=== PATIENT | male | born 1965 | race Two or more races ===

== ENCOUNTER 2016-12-12 21:05 | Emergency (ER) | payer MEDICARE, MEDICAID ==
[~2016-12-12] VITALS: Ht 180.3 cm; Wt 99.8 kg
[2016-12-12 21:10] VITALS: BP 122/70
[2016-12-12 21:27] LABS: APPEARANCE,URINE CLEAR; KETONES,URINE NEGATIVE (NEGATIVE); LEUKOCYTE ESTERASE ,URINE NEGATIVE (NEGATIVE); NITRITE,URINE NEGATIVE (NEGATIVE); PH,URINE 6 (4.5-8.0); PROTEIN,URINE 2+ (NEGATIVE); UROBILINOGEN,URINE NORMAL MG/DL (0.0-1.0)
[2016-12-12 21:40] LABS: RBC,URINE 0-2 /HPF (0 - 0); SQUAMOUS EPITHELIAL CELL,UR OCCASIONAL /LPF (NONE/OCC); WBC,URINE 0-2 /HPF (0 - 0)
[2016-12-12 21:41] LABS: BACTERIA,URINE OCCASIONAL /HPF
--- NOTE | 2016-12-12 21:48 | Emergency Room Report ---
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 BPH, presenting with one yr of abdominal pain and urinary frequency. Patient states that he has intermittent abdominal pain, points to suprapubic region, states that he has burning on urination, and urinary frequency. Denies hematuria. He should denies any fever chills nausea vomiting diarrhea or constipation. Patient states that he has been able to eat and drink normally. States that he has not seen a urologist. Allergies: Coded Allergies: No Known Allergies (Unverified , 12/12/16) Patient History Past Medical History: HTN, CHF, other - Osteosarcoma s/p chemo Past Surgical History: other Pertinent Family History: none Reviewed Nursing Documentation: PMH: Agreed, PSxH: Agreed Nursing Documentation-PMH Hx Cardiac Problems: Yes - CHF Hx Hypertension: Yes Hx Cancer: Yes - Sarcoma, Prostate surgery in 2010 Physical Exam Vital Signs Date Time Temp Pulse Resp B/P (MAP) Pulse Ox O2 Delivery O2 Flow Rate FiO2 12/12/16 20:57 97.5 75 18 122/70 98 Medical Decision Making Diagnostic Impression: Primary Impression: Urinary frequency Additional Impression: Chronic abdominal pain ER Course 51 yo M with chronic suprapubic pain / urinary frequency x 1 year DDX: Chronic cystitis/UTI, BPH, at this time patient has no tenderness on exam and given chronic symptoms I am not concerned with acute intra-abdominal surgical pathology such as appendicitis diverticulitis Plan: ucx, ucg ER course: Patient has remained stable during ED stay. uA negative Disposition: Patient is to be discharged to home. Patient is instructed to follow up with their primary care doctor within 5 days. Patient is instructed to follow up with urologist within 3 days. Strict return precautions discussed with patient such as fever, chills, worsening/severe pain, nausea, vomiting, which may indicate severe illness. Patient verbalizes understanding and agrees with plan. Please note that this Emergency Department Report was dictated using [employer] machine operator helper gas technology software, occasionally this can lead to erroneous entry secondary to interpretation by the dictation equipment Laboratory Tests Test 12/12/16 21:00 Urine Color Pale yellow Urine Appearance Clear Urine pH 6 (4.5-8.0) Urine Specific [place] 1.005 (1.005-1.035) Urine Protein 2+ (NEGATIVE) H Urine Glucose (UA) Negative (NEGATIVE) Urine Ketones Negative (NEGATIVE) Urine Occult Blood 2+ (NEGATIVE) H Urine Nitrite Negative (NEGATIVE) Urine Bilirubin Negative (NEGATIVE) Urine Urobilinogen Normal MG/DL (0.0-1.0) Urine Leukocyte Esterase Negative (NEGATIVE) Urine RBC 0-2 /HPF (0 - 0) H Urine WBC 0-2 /HPF (0 - 0) Urine Squamous Epithelial Cells Occasional /LPF Urine Bacteria Occasional /HPF (NONE) Last Vital Signs Date Time Temp Pulse Resp B/P (MAP) Pulse Ox O2 Delivery O2 Flow Rate FiO2 12/12/16 21:10 97.5 74 19 122/70 97 Disposition: HOME, SELF-CARE Condition: Stable Referrals: ELISEO LOZADA (PCP) Patient Instructions: Abdominal Pain, Adult, Urinary Frequency Additional Instructions: Please follow up with your primary care doctor within 3 days. Please follow up with a urologist within 1 week Please come back to the emergency room if you are having fever, chills, worsening pain, chest pain, shortness of breath, or nausea or vomiting Mj García M.D. Dec 12, 2016 21:48
[2016-12-12 22:40] VITALS: BP 121/69
[2016-12-12 23:17] VITALS: BP 121/69
== END 2016-12-12 23:17 | disposition home or self-care (01) ==
LOC: EDBD 21:05 → CANBEDREQ 21:22 → EMR 21:45
DX: R35.0 Frequency of micturition (principal); R10.9 Unspecified abdominal pain; G89.29 Other chronic pain; I11.0 Hypertensive heart disease with heart failure; I50.9 Heart failure, unspecified; Z85.9 Personal history of malignant neoplasm, unspecified
CPT/HCPCS: 81003; 99283